=== PATIENT | female | born 1965 | race African-American/Black ===

== ENCOUNTER 2017-09-30 17:44 | Observation (INO) ==
[2017-09-30] MEDS ORDERED: ASPIRIN 325 MG TABLET PO STA (18:20)
[2017-09-30 18:57] LABS: Basophils % 0.4 % (0.0-0.8); Eosinophils # 0.2 10*3/uL (0.0-0.87); Eosinophils % 1.9 % (0.00-10.9); Hematocrit 37.5 VOL% (35.7-47.0); Hemoglobin 12.1 GM/DL (12.0-16.0); Immature Granulocytes % 0.3 %; Immature Granulocytes Absolute 0.02 #; Lymphocytes # 3.2 10*3/uL (1.4-4.0); Mean Corpuscular HGB Conc 32.3 GM/DL (32-36); Mean Corpuscular Hemoglobin 27 PG (27-34); Mean Corpuscular Volume 83.5 FL (87-102); Mean Platelet Volume 9.8 FL (9.6-12.0); Monocytes # 0.9 10*3/uL (0.11-0.8); Monocytes % 11.4 % (1.7-12.7); Neutrophils # 3.6 10*3/uL (1.4-7.4); Platelet Count 375 T/CUMM (130-400); Red Blood Count 4.49 MC/CUMM (3.8-5.5); Red Cell Distribution Width 14.3 % (9.3-17.3); White Blood Count 7.9 T/CUMM (4-12)
[2017-09-30 19:14] LABS: Calcium 9.3 MG/DL (8.5-10.1); Osmolality,Calculated 280.3 MOS/KG (273-304); Potassium 3.5 MMOL/L (3.5-5.1)
[2017-09-30] MEDS ORDERED: ONDANSETRON 4 MG/2 ML VIAL IV PRN (19:43)
[2017-09-30] MEDS ORDERED: NITROGLYCERIN SL 0.4 MG TABLET SL PRN (20:34)
[2017-09-30] MEDS ORDERED: FUROSEMIDE 40 MG TABLET PO SCH (21:00)
[2017-09-30] MEDS ORDERED: ENOXAPARIN 40 MG/0.4 ML SYRINGE SUBCUT SCH (21:00)
[2017-10-01 04:50] LABS: Basophils % 0.5 % (0.0-0.8); Eosinophils # 0.2 10*3/uL (0.0-0.87); Eosinophils % 2.3 % (0.00-10.9); Hematocrit 37.7 VOL% (35.7-47.0); Hemoglobin 12.3 GM/DL (12.0-16.0); Immature Granulocytes % 0.2 %; Immature Granulocytes Absolute 0.01 #; Lymphocytes % 46.5 % (21.3-54.2); Mean Corpuscular HGB Conc 32.6 GM/DL (32-36); Mean Corpuscular Hemoglobin 27 PG (27-34); Mean Corpuscular Volume 81.6 FL (87-102); Mean Platelet Volume 10.3 FL (9.6-12.0); Monocytes # 0.7 10*3/uL (0.11-0.8); Monocytes % 10.4 % (1.7-12.7); Neutrophils # 2.6 10*3/uL (1.4-7.4); Neutrophils % 40.1 % (38.7-73.9); Platelet Count 392 T/CUMM (130-400); Red Blood Count 4.62 MC/CUMM (3.8-5.5); Red Cell Distribution Width 14.5 % (9.3-17.3); White Blood Count 6.5 T/CUMM (4-12)
[2017-10-01 05:27] LABS: Osmolality,Calculated 283.8 MOS/KG (273-304); Potassium 3.3 MMOL/L (3.5-5.1); Risk Ratio 2.57; Thyroid Stimulating Hormone 1.39 uIU/ml (0.358-3.74); VLDL CHOLESTEROL 13.2 MG/DL
[2017-10-01] MEDS ORDERED: POTASSIUM CHLORIDE RIDER 10 MEQ in PREMIX 1 EACH IV PRN (07:24)
[2017-10-01] MEDS ORDERED: amLODIPine 10 MG TABLET PO SCH (09:00)
[2017-10-01] MEDS ORDERED: PANTOPRAZOLE 40 MG TABLET PO SCH (09:00)
[2017-10-01] MEDS ORDERED: ROSUVASTATIN 20 MG TABLET PO SCH (09:00)
[2017-10-01] MEDS ORDERED: ASPIRIN 325 MG TABLET PO SCH (09:00)
[2017-10-01] MEDS ORDERED: KETOROLAC 30 MG/1 ML VIAL IV ONE (11:20)
[2017-10-01] MEDS: POTASSIUM CHLORIDE 20 MEQ TABLET PO PRN ×3 (11:30→16:00)
[2017-10-01 12:15] VITALS: BP 144/92
== END 2017-10-01 16:15 | disposition home or self-care (01) ==
LOC: N.EDINP 17:44 → N.ED 17:44 → N.TELEN 20:35
PROVIDERS: ADMIT Hospitalist; ATTEND Hospitalist